=== PATIENT | male | born 1965 | race Caucasian/White ===

== ENCOUNTER 2019-07-09 11:52 | Day surgery (SDC) | payer OTHER, SELFPAY ==
[2019-07-09 12:17] VITALS: BP 137/89; PULSE 96; RESP 15; TEMP 36.2; O2SAT 95; BMI 32.1
[2019-07-09] MEDS: SODIUM CHLORIDE 0.9% 1,000 ML 200 ML IV (12:27)
--- NOTE | 2019-07-09 12:43 | PM.HP.1 ---
History of Present Illness History of Present Illness Date Patient Seen: 07/09/19 Time Patient Seen: 12:43 Chief complaint: [id number] Narrative: 53-year-old white male comes in for his 2nd colonoscopy. He is asymptomatic. He has a family history of colon cancer is mother had colon cancer in her 50s. His 1st colonoscopy was negative. Patient History Social History household members: spouse Family & Social History Social History: household members spouse Meds Home Medications and Allergies Home Medications Medication Instructions Recorded Confirmed Type lisinopril-hydrochlorothiazide 1 tab PO DAILY 07/09/19 07/09/19 History pravastatin 20 mg PO DAILY 07/09/19 07/09/19 History Allergies Allergy/AdvReac Type Severity Reaction Status Date / Time No Known Drug Allergies Allergy Verified 07/09/19 12:11 Review of Systems Review of Systems ROS Unobtainable: All systems reviewed & are unremarkable except as noted in HPI and below Exam Vital Signs (past 8 hours): - 07/09/19 12:17 Temperature 97.2 F L Pulse Rate 96 H Respiratory Rate 15 Blood Pressure 137/89 Pulse Oximetry 95 Oxygen Delivery Method Room Air Narrative Exam Narrative: Patient is alert and oriented. He is asymptomatic has no complaints of pain. Lungs are clear with no rales or wheezes Heart regular rhythm no murmur Abdomen soft no organomegaly no tenderness Rectal to be done at time of colonoscopy Assessment & Plan Assessment & Plan narrative: Patient is here for his 2nd colonoscopy the 1st showing no polyps 5 years ago. Patient understands the procedure and has no questions there were unanswered.
--- NOTE | 2019-07-09 12:46 | PM.OP.ENDO ---
Operative Date/Time/Diagnoses Date of procedure: 07/09/19 Time of procedure: 13:17 Pre-op diagnosis: Screening colonoscopy Post-op diagnosis: same Procedure & Clinicians Study performed: Total colonoscopy to the cecum Same procedure as scheduled: Yes Surgeon: Rikki Kwong Procedure Notes SCOAP/Timeout: Was done Procedure in detail: The patient was properly identified during surgical pause the flexible fiberoptic colonoscope inserted transanally to the cecum. He was given a total of 4 mg of Versed and 150 micro g of fentanyl and remained comfortable throughout the procedure. Patient had an excellent prep and has no polyps no tumors no ulcerations no diverticulosis. He had a normal exam. Scope withdrawal time: 8 Sedation minutes: 15 Specimen(s): none sent Complications: none Post-procedure Recommendations: Colonscopy in 5 years Disposition: PACU
[2019-07-09] MEDS: fentaNYL 250 MCG/5 ML INJ IV (13:12)
[2019-07-09] MEDS: MIDAZOLAM 5 MG/5 ML VIAL IV (13:12)
[2019-07-09 13:20] VITALS: BP 131/80; PULSE 90; RESP 16; TEMP 37.1; O2SAT 94
[2019-07-09 13:48] VITALS: BP 127/82; PULSE 91; RESP 16; TEMP 37; O2SAT 95
== END 2019-07-09 13:48 | disposition home or self-care (01) ==
LOC: ENDO 11:55
PROVIDERS: PCP Family Medicine; Visit Provider Surgery
PROC: 0DJD8ZZ Inspection of Lower Intestinal Tract, Via Natural or Artificial Opening Endoscopic (ICD-10-PCS; CPT 45378; principal; 2019-07-09 13:00)
DX: Z12.11 Encounter for screening for malignant neoplasm of colon (principal)
CPT/HCPCS: 45378; 99152; J2250; J3010